=== PATIENT | female | born 1955 | race Caucasian/White ===

== ENCOUNTER 2025-02-23 15:49 | Emergency (ER) | payer MEDICARE, SELFPAY ==
[2025-02-23 16:01] VITALS: BP 159/80; PULSE 85; RESP 16; TEMP 36.1; O2SAT 99; BMI 29.6
--- NOTE | 2025-02-23 16:14 | ED.SKABFB ---
HPI - Skin/Abscess/Foreign Bdy General Date Seen: 02/23/25 Chief complaint: Skin/Abscess/Foreign Body Stated complaint: R arm injury Time Seen by Provider: 02/23/25 16:14 Source: patient and RN notes reviewed Mode of arrival: ambulatory Limitations: no limitations History of Present Illness HPI narrative: This 69-year-old female is here with her significant other, she is being evaluated of concern of bruising in her right arm. She attempted to donate blood on Monday as her blanket binder has cancer and does get blood transfusions frequently. She was trying to donate blood back. She states the person attempting to cannulate her vein had a very difficult time getting IV access, she states she had difficult time with drawing it. She admits that she is worried as she had a friend whose daughter had a blood draw an her leg years ago and then some condition went undiagnosed and she lost her leg. Reviewed with patient that there is really no way to know what happened there. We do not know what ultimately was underlying wrong with this patient, there could have been infection. There can be increased risk of thromboembolic disease when accessing lower extremity veins verses upper extremity veins. She is having no fevers or chills herself, no swelling in the arm, no numbness or tingling. She does note that the bruising has come out a bit more which is concerning to her. There is no difficulty moving her arm. No associated shortness of breath or chest pain. She has some localized pain right at the point where they attempted to put the IV in. No history of blood clots, no blood thinners. Review of Systems Narrative: As per HPI. PFSH PFSH Social History Smoking Status: Never smoker Do you use any of these nicotine containing products: None Second hand tobacco smoke exposure: No How often do you have a drink containing alcohol: never How often do you have six or more drinks on one occasion: Never AUDIT-C Alcohol total score: 0 Non-prescribed substance use: denies use service: No Exam Const: Vital Signs, click to edit/add: Vital Signs - 24 hr 02/23/25 16:01 Temperature 97.0 F L Pulse Rate [Pulse Oximeter] 85 Respiratory Rate 16 Blood Pressure [Le ft Upper Arm] 159/80 H Pulse Oximetry 99 Oxygen Delivery Me thod Room Air This 69-year-old female is alert, interactive, no apparent distress. She is ambulatory into the ED of her own accord. Lungs clear, good air entry, wheeze or crackles, no tachypnea, no accessory muscle use. CV regular rate and rhythm, no murmur, normal S1-S2, no S3-S4. She has full range of motion throughout her right arm, no deficits noted. There is absolutely no swelling. She has a good radial pulse, normal sensation distally. She has up pinpoint scab we can see where they tried to put the IV in for her blood donation in the right antecubital fossa. There is no palpable cord from this site, upper arm is not tender, forearm has no swelling or tenderness. She has some bruising around that puncture site and then some medially in the antecubital fossa that is deep purplish and blue. She has some mild tenderness in the bruised area but overall tolerates palpation quite well. Documenting provider has reviewed patient's vital signs: yes Course Course ED Course: Have reviewed with patient that this appears to be normal traumatic bruising from a difficult IV access. Unfortunately it did not work and there was some trauma to the area but I am not seeing anything concerning. I would not ultrasound her she really has no physical exam or physical symptoms concerning right now. We discussed that this is just classic traumatic bruising in should start to resolve over the next 1-2 weeks. Did discuss signs and symptoms of a DVT. She really has no swelling in this arm right now, just minimal site tenderness where the attempted the IV and no cord, no significant induration. We discussed observation and conservative management, she is comfortable with this. Will not be doing any labs as this is very unlikely to change my course of action here. Vital Signs Vital signs: Initial Vital Signs Temperature 97.0 F L 02/23/25 16:01 Temperature Source Temporal Artery Scan 02/23/25 16:01 Pulse Rate 85 02/23/25 16:01 Pulse Rhythm Regular 02/23/25 16:01 Respiratory Rate 16 02/23/25 16:01 Blood Pressure 159/80 H 02/23/25 16:01 Blood Pressure Mean 106 H 02/23/25 16:01 Blood Pressure Position Sitting 02/23/25 16:01 Pulse Oximetry 99 02/23/25 16:01 Oxygen Delivery Method Room Air 02/23/25 16:01 Vital Signs Temperature 97.0 F L 02/23/25 16:01 Pulse Rate 85 02/23/25 16:01 Respiratory Rate 16 02/23/25 16:01 Blood Pressure 159/80 H 02/23/25 16:01 Pulse Oximetry 99 02/23/25 16:01 Oxygen Delivery Method Room Air 02/23/25 16:01 Temperature 97.0 F L 02/23/25 16:01 Pulse Rate 85 02/23/25 16:01 Respiratory Rate 16 02/23/25 16:01 Blood Pressure 159/80 H 02/23/25 16:01 Pulse Oximetry 99 02/23/25 16:01 Oxygen Delivery Method Room Air 02/23/25 16:01 Discharge Plan Discharge Clinical Impression: Traumatic ecchymosis of right forearm Qualifiers: Encounter type: initial encounter Qualified Code(s): S50.11XA - Contusion of right forearm, initial encounter Patient Disposition: Home, Self-Care Condition: Stable Instructions: Contusion in Adults (ED) Additional Instructions: This is most definitely a traumatic bruise from the attempt at achieving IV access for the blood donation. You may see the bruising travel down the arm as gravity poles the bruise dependent. You can try a resting your arm, using some ice to the bruised area. This should improve over the next 1-2 weeks. If you notice that the whole forearm itself is starting to become swollen or tender within the forearm outside of the initial bruise and attempted IV site, do recommend having somebody look at your arm again. I see no evidence of anything concerning at this time outside of a bruised area in the arm. Any time there are attempts for injections or IV sites, infection can result; infection would likely start as increased swelling in the area, increased pain and redness, possible fever. If you have signs and symptoms of an infection developing, do recommend re-evaluation. Activity Level: Activity as Tolerated Stand Alone Forms: [employer]ealth Info Instructions
--- OUTSIDE RECORDS SUMMARY | 2025-02-23 16:53 | XMS_ITS | Clinical Summary ---
Author Organization [facility] Address [address] [place] [id number] Care Team Providers Care Oracle Database Developer Name Role Phone Nissa Joel Primary Care Provider Allergies No known active allergies Medications aspirin enteric coated 81 mg tablet Take 1 tablet by mouth once daily with a meal. 0 0 Active ACCU-CHEK FASTCLIX LANCET DRUMIndications: Controlled type 2 diabetes mellitus without complication, without long-term current use of insulin (HC) Dispense item covered by pt ins. E11.9 NIDDM type II - Test 1 times/day 100 Each 6 0 Active Blood Pressure Monitor (BLOOD PRESSURE KIT)Indications: Essential hypertension Diagnosis: hypertension Use as directed OMRON 1 Device 1 Active Accu-Chek Guide test strips stripIndications :Controlled type 2 diabetes mellitus without complication, without long-term current use of insulin (HC) USE DIRECTED 3 TIMES A DAY 300 Strip 3 1 Active lisinopriL 20 mg tabletIndication s:Essential hypertension Take 1 Tablet (20 mg) by mouth once daily. 100 Tablet 3 5 Active hydroCHLOROthiaz mikey 50 mg tabletIndication s:Essential hypertension Take 1 Tablet (50 mg) by mouth once daily. 100 Tablet 3 5 Active metFORMIN 500 mg Extended-Release tabletIndication s:Controlled type 2 diabetes mellitus without complication, without long-term current use of insulin (HC) Take 1 tablet by mouth daily with a meal for a week, then take 1 tablet twice daily with meals. 200 Tablet 3 5 Active atorvastatin 40 mg tabletIndication s:Mixed dyslipidemia Take 1 Tablet (40 mg) by mouth at bedtime. 100 Tablet 3 5 Active Active Problems Problem Noted Date Diagnosed Date Type 2 diabetes mellitus wit h diabetic cataract, without long-term current use of insulin 12/15/2024 Osteopenia of multiple sites 03/10/2022 Overview (03/10/2022): DEXA 03/10/22: T-scores AP: 0.5, LFN -1.9, RFN -1.9. FRAX 10.6, 2.5%. Recommend basic bone health and repeat in 3-5 years. 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 Recommended to repeat low dose CT in 1 month. 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 Prediabetic class recommended Tobacco use disorder 11/02/2006 Insomnia, unspecified 11/02/2006 Essential hypertension 10/08/2002 Resolved Problems Problem Noted Date Diagnosed Date Resolved Date Type 2 diabetes mellitus wit h diabetic cataract, without long-term current use of insulin 02/19/2024 05/23/2024 History of abnormal cervical Pap smear 11/27/2017 06/03/2024 Overview (01/15/2021): History of cryotherapy of cervix. Date and results unknown. ASCCP recommends: History of CIN2 - CIN3: Cotesting every 3 years for 20 years. Due 12/2023 Hyperlipidemia, unspecified 11/02/2006 12/30/2020 Encounters Date Type Department Care Team Description 02/23/2025 3:10 PM CDT Office Visit [facility] [address] [place] [phone] Error-please disregard (appt cancellation) 02/23/2025 Travel 12/16/2024 3:00 PM CDT [place] [facility] [address] [place] [address] Nissa Joel DO Medicare ANNUAL (subsequent) Visit 12/16/2024 Travel 12/11/2024 Travel from Last 3 Months Immunizations Immunization Administration Dates Next Due COVID-19 VACCINE SPIKEVAX (M ODERNA 50MCG/0.5ML) 12YO+ PFS 05/23/2024,02/19/2024 COVID-19 vaccine (Moderna 100mcg/0.5mL) PF, MDV 12/16/2020,11/13/2020 COVID-19 vaccine (Moderna 50mcg/0.5mL) 12YO+ BIVALENT PF, MDV 06/14/2022 COVID-19 vaccine (Moderna Carlos harjit 50mcg/0.25mL) PF, MDV 12/30/2021 HepA-HepB (Twinrix) 06/25/2015,04/29/2015 Influenza Virus, Unspecified 06/16/2020,07/07/20 17 Influenza, High-dose Quadriv alent Inactivated 06/11/2022,06/19/2021 Influenza, IIV3 (Age >=3 years) 05/23/20 11,06/21/2010,05/29/2009,2005 Influenza, IIV4 06/16/2019, 8,05/18/2016,2014 Influenza, Inactivated AIIV4 (Age 65+ Years) Preserv Free 05/21/2023 Influenza, Inactivated IIV3 (Age 65+ Years) Preserv Free 05/23/2024 Influenza,CCIIV4 PRESERV FREE 06/16/2020, 017 Pneumococcal Conj 20-valent (Prevnar 20) 07/01/2022 Pneumococcal Poly,23-Valent (Pneumovax) 02/07/2019 Td, Preservative Free (age > = 7 Years) 07/12/2017 Tdap 11/02/2006 Zoster (Shingrix-RZV, recombinant) 02/07/2019, Family History Medical History Relation Name Comments Multiple myeloma Brother Hypertension Father Stroke Father Cancer Maternal Grandfather Cancer Maternal Grandmother Cervica l Diabetes Mother Heart Disease Mother CAD Hyperlipidemia Mother Hypercholeste rolemea Hypertension Mother Stroke Paternal Grandmother Cancer-breast No Family History Relation Name Status Comments Brother Father Maternal Grandfather Maternal Grandmother Mother Paternal Grandfather Paternal Grandmother Social History Tobacco Use Types Packs/Day Years Used Date Smoking Tobacco: Every Day Cigarettes 0.5 43 Smokeless Tobacco: Never Tobacco Cessation:Ready to Q uit: No; Counseling Given: No Comments:packet given working on cutting back Alcohol Use Standard Drinks/Week Comments Yes 5 (1 standard drink = 0.6 oz pur e alcohol) PHQ-2 Answer Date Recorded PHQ-2 TOTAL SCORE 0 12/16/2024 Social Connections Answer Date Recorded Do you often feel lonely or isolated from those around you? 0 12/16/2024 Financial Resource Strain Answer Date R ecorded Difficulty of Paying Living Expenses 3 12/16/2024 Difficulty of Paying Living Expenses Not on file 12/16/2024 Food Insecurity Answer Date Recorded Do you worry your food will run out before you are able to buy more? 1 12/16/2024 Transportation Needs Answer Date Record ed Does lack of transportation keep you from medica l appointments? 1 12/16/2024 Does lack of transportation keep you from work, meetings or getting things that you need? 1 12/16/2024 Housing Stability Answer Date Recorded What is your housing situation today? 1 12/16/2024 Utilities Answer Date Recorded Do you have trouble paying f or utilities (for example, heat, electricity, water, phone)? 1 12/16/2024 Comments No Sex and Gender Information Value Date Recorded Sex Assigned at Not on file Legal Sex Female 5:20 AM CARE TRANSITIONS MANAGER Gender Identity Not on file Sexual Orientation Not on file Obstetrics History Para Term AB IAB SAB Ectopic Multiple Livin g Live Births 2 1 1 0 1 1 0 0 0 1 Date Outcome GA Total Labor Labor/2nd/3rd Weight Sex Type Anes PTL Stacia A1 A5 Name Clin IAB Term Last Filed Vital Signs Vital Sign Reading Time Taken Comments Blood Pressure 134/72 12/16/2024 3:03 PM CDT Pulse 68 12/16/2024 3:03 PM CDT Temperature 36.8 C (98.3 F) 12/08/2023 1:56 PM CDT Respiratory Rate 16 12/16/2024 3:03 PM CDT Oxygen Saturation 99% 12/16/2024 3:03 PM CDT Inhaled Oxygen Concentration - - Weight 76.4 kg (168 lb 8 oz) 12/16/2024 3:03 PM CDT Height 160.6 cm (5' 3.23) 12/16/2024 3:03 PM CD T Body Mass Index 29.63 12/16/2024 3:03 PM CDT Plan of Treatment Upcoming Encounters Date Type Department Care Team (Late st Contact Info) Description 06/19/2025 3:50 PM CDT Office [place] [facility] [place] [address] [place] [address] [place], [place] [phone] Health Maintenance Due Date Last Done Comments RSV vaccine for adults or (1 - Risk 60-74 years 1-dose series) 2015 Hepatitis B series for 19+ ( 3 of 3 - Hep B Twinrix 3-dose series) 11/24/2015 06/25/2015, 04/29/2015 COVID-19 vaccine series ( season) 2024 05/23/2024, 02/19/2024, 06/23/2023, Additional history exists Mammogram for age 45-75 07/30/2025 07/30/20 24, 03/20/2023, 03/07/2022, Additional history exists Low Dose CT (for lung CA) ag e 50-80 08/20/2025 08/20/2024, 2023, 04/26/2022, Additional history exists BMI (ht and wt on same day) for age 18+ 12/16/2025 12/16/2024, 05/23/2024, 02/19/2024, Additional history exists Depression screening for age 12+ 12/16/2025 12/16/2024, 02/28/2024, 02/20/2024, Additional history exists Medicare Wellness for age 65+ 12/17/2025, 02/19/2024, 12/30/2022, Additional history exists Tetanus booster 07/12/2027 07/12/2017, 11/02/2006 Colonoscopy through age 75 03/20/202803/20, 03/20/2018, 01/01/2008 Lipids for age 45-75 12/16/2029 12/16/2024, 02/19/2024, 12/30/2022, Additional history exists Tdap Completed 11/02/2006 Hepatitis C screening for ag e 18-79 Completed 04/09/2014 Zoster (shingles) series for age 50+ Completed 02/07/2019, 10/10/2018 DEXA/DXA scan for age 65+ Completed 03/07/2022, Pneumococcal series for age 50+ Completed , 02/07/2019 Influenza Vaccine Completed 05/23/2024, , 06/16/2020, Additional history exists Goals Goal Patient Goal Type Associated Problems Recent Progress Patient-Stated? Author BLOOD PRESSURE-MA INTAINS BP LESS THAN 130/80 Blood Pressure No Ambreen Huerta, MD Procedures Procedure Name Priority Date/Time Associated Diagnosis Comments URINE ALBUMIN TO CREATININE RATIO, RANDOM Routine 12/16/2024 4:13 PM CDT Controlled type 2 diabetes mellitus without complication, without long-term current use of insulin (HC) HEMOGLOBIN A1C MONITORING (POCT) Routine 12/16/2024 2:54 PM CDT Controlled type 2 diabetes mellitus without complication, without long-term current use of insulin (HC) COMP METABOLIC PANEL Routine 12/16/2024 2:53 PM CDT Essential hypertension LIPID PANEL W REFLEX MEASURED LDL Routine 12/16/2024 2:53 PM CDT Mixed dyslipidemia CT CHEST SCREENING LOW DOSE WO CONTRAST Routine 08/20/2024 2:42 PM CARE TRANSITIONS MANAGER Encounter for screening for lung cancer Smoker XR MAMMO VICKIE BILAT SCREEN Routine 07/30/2024 4:01 PM CARE TRANSITIONS MANAGER Visit for screening mammogram XR DXA BONE DENSITY 2 SITES AXIAL Routine 03/07/2022 3:30 PM CDT Osteoporosis screening Unspecified menopausal and perimenopausal disorder COLONOSCOPY 03/20/2018 11:33 AM CDT ANTI HCV Routine 04/09/2014 8:50 AM CDT Need for hepatitis C screening test from Last 3 Months or Most Recently Relevant to Health Maintenance Results * URINE ALBUMIN TO CREATININE RATIO, RANDOM (12/16/2024 4:13 PM CDT) ALB RAND URINE <12.0 mg/L 12/16/2024 11:52 PM CDT [facility] CREATININE,URINE 0.39 g/L 12/17/19 11:52 PM CDT [facility] ALBUMIN TO CREATININE RATIO,RAND UR 12/16/2024 11:52 PM CDT [facility] Comment:Urine Albumin below measurement range, unable to calculate. Urine URINE SPECIMEN / Unknown Non-Blood / Unknown 12/16/2024 4:13 PM CDT 12/16/2024 4:13 PM CDT Narrative [facility] - 12/16/2024 11:52 PM CDT If Albumin to Creatinine Ratio is elevated, consider the following: Elevations seen with incipient nephropathy associated with diabetes mellitus or hypertension. Stress, exercise,hematuria, and urinary tract infection may also produce elevated results. If clinically indicated, confirm with 24 Hour Albumin to Creatinine Ratio. Nissa Joel DO URINE Final Resul t [facility] [address] [place] [address], * HEMOGLOBIN A1C MONITORING (POCT) (12/16/2024 2:54 PM CDT) Pathologist [facility] POC HEMOGLOBIN A1C 5.7 <6.0 % OF TOTAL HGB [facility] Comment: Any point of care results exhibiting inconsistency with the patient's clinical status should be repeated using a different testing method. Blood BLOOD SPECIMEN / Unknown 12/16/2024 2:54 PM CDT 12/16/2024 2:54 PM CDT Nissa Joel DO CHEMISTRY Final Resul t [facility] [address] [place] [address], [facility] [address] [facility] [address] [place] [address] * LIPID PANEL W REFLEX MEASURED LDL (12/16/2024 2:53 PM CDT) CHOLESTEROL, TOTAL 162 <200 mg/dL [facility] HDL CHOLESTEROL 59 > OR = 50 mg/dL [facility] TRIGLYCERIDES 134 <150 mg/dL [facility] LDL-CHOLESTEROL 80 mg/dL (calc) [facility] Comment: Reference range: <100 Desirable range <100 mg/dL for primary prevention; <70 mg/dL for patients with CHD or diabetic patients with > or = 2 CHD risk factors. LDL-C is now calculated using the Jerald calculation, which is a validated novel method providing better accuracy than the Friedewald equation in the estimation of LDL-C. Thierno PARTIDA et al. MARY ANN. 2013;310(19): 4904-9284 (http://education.Five Apes/faq/FWM799) CHOL/HDLC RATIO 2.7 <5.0 (calc) [facility] NON HDL CHOLESTEROL 103 <130 mg/dL (calc) [facility] Comment: For patients with diabetes plus 1 major ASCVD risk factor, treating to a non-HDL-C goal of <100 mg/dL (LDL-C of <70 mg/dL) is considered a therapeutic option. Blood BLOOD SPECIMEN / Unknown 12/16/2024 2:53 PM CDT 12/16/2024 2:53 PM CDT us Nissa Joel DO CHEMISTRY Final Resul t [facility] [address] [place] [address], [address] [address] * COMP METABOLIC PANEL (12/16/2024 2:53 PM CDT) [facility] GLUCOSE 89 65 - 99 mg/dL [facility] Comment: Fasting reference interval UREA NITROGEN (BUN) 14 7 - 25 mg/dL [facility] CREATININE 0.83 0.50 - 1.05 mg/dL [facility] EGFR 76 > OR = 60 mL/min/1. 73m2 [facility] BUN/CREATININE RATIO SEE NOTE: 6 - (calc) [facility] Comment: Not Reported: BUN and Creatinine are within reference range. SODIUM 139 135 - 146 mmol/L [facility] POTASSIUM 4.4 3.5 - 5.3 mmol/L [facility] CHLORIDE 102 98 - 110 mmol/L [facility] CARBON DIOXIDE 28 20 - 32 mmol/L [facility] CALCIUM 9.8 8.6 - 10.4 mg/dL [facility] PROTEIN, TOTAL 6.8 6.1 - 8.1 g/dL [facility] ALBUMIN 4.6 3.6 - 5.1 g/dL [facility] GLOBULIN 2.2 1.9 - 3.7 g/dL (calc) [facility] ALBUMIN/GLOBULIN RATIO 2.1 1.0 - 2.5 (calc) [facility] BILIRUBIN, TOTAL 0.6 0.2 - 1.2 mg/dL [facility] ALKALINE PHOSPHATASE 57 37 - 153 U/L [facility] AST 16 10 - 35 U/L [facility] ALT 19 6 - 29 U/L [facility] Blood BLOOD SPECIMEN / Unknown 12/16/2024 2:53 PM CDT 12/16/2024 2:53 PM CDT us Nissa Joel DO CHEMISTRY Final Resul t [facility] [address] [place] [address], [facility] [address] [place] [address] * CT CHEST SCREENING LOW DOSE WO CONTRAST (08/20/2024 2:42 PM CARE TRANSITIONS MANAGER) Anatomical Region Laterality Modality Computed Tomogra phy 08/20/2024 2:42 PM CARE TRANSITIONS MANAGER Impressions 2024 10:03 AM CARE TRANSITIONS MANAGER 1. Negative for lung cancer screening purposes. LungRADS CATEGORY: 1 - Negative RADIOLOGIST RECOMMENDATION: Continue annual screening with low-dose CT chest in 12 months. Narrative 2024 10:03 AM CARE TRANSITIONS MANAGER For Patients: As a result of the Cures Act, medical imaging exams and procedure reports are released immediately into your electronic medical record. You may view this report before your referring provider. If you have questions, please contact your health care provider. EXAM: LOW DOSE LUNG CANCER SCREENING CT CHEST LOCATION: [facility] DATE: 08/20/2024 INDICATION: Lung cancer screening. History of smoking. High risk patient. COMPARISON: [address] TECHNIQUE: Low-dose lung cancer screening non-contrast CT chest. Dose reduction techniques were used. FINDINGS: NODULES: No significant lung nodule. LUNGS AND PLEURA: Stable Faint 3 mm pleural nodule left major fissure image 53 of no significance. No new findings. MEDIASTINUM: Normal. CORONARY ARTERY CALCIFICATION: Moderate. LIMITED UPPER ABDOMEN: Normal. MUSCULOSKELETAL: Normal. Procedure Note Danish Rosales MD - 2024 For Patients: As a result of the s Act, medical imagingexams and procedure reports are released immediately into your electronicmedical record. You may view this report before your referring provider.If you have questions, please contact your health care provider. EXAM: LOW DOSE LUNG CANCER SCREENING CT CHEST LOCATION: [facility] DATE: 08/20/2024 INDICATION: Lung cancer screening. History of smoking. High riskpatient. COMPARISON: [address] TECHNIQUE: Low-dose lung cancer screening non-contrast CT chest. Dosereduction techniques were used. FINDINGS: NODULES: No significant lung nodule. LUNGS AND PLEURA: Stable Faint 3 mm pleural nodule left major fissureimage 53 of no significance. No new findings. MEDIASTINUM: Normal. CORONARY ARTERY CALCIFICATION: Moderate. LIMITED UPPER ABDOMEN: Normal. MUSCULOSKELETAL: Normal. IMPRESSION: 1. Negative for lung cancer screening purposes. LungRADS CATEGORY: 1 - Negative RADIOLOGIST RECOMMENDATION: Continue annual screening with low-dose CTchest in [address] Final Resul t * XR MAMMO VICKIE BILAT SCREEN (07/30/2024 4:01 PM CARE TRANSITIONS MANAGER) Anatomical Region Laterality Modality BREASTS, Breast Left, Breast Right Bilateral Mammography Impressions 07/31/2024 11:25 AM CARE TRANSITIONS MANAGER There is no radiographic evidence for malignancy. Recommend annual mammograms. MAMMOGRAM ASSESSMENT: ACR 1 Negative PATIENTS: You will also receive a letter with your examination results in an easy to read format. If you have questions about your results, please contact your referring provider. Narrative 07/31/2024 11:25 AM CARE TRANSITIONS MANAGER For Patients: As a result of the Cures Act, medical imaging exams and procedure reports are released immediately into your electronic medical record. You may view this report before your referring provider. If you have questions, please contact your health care provider. XR MAMMO VICKIE BILAT SCREEN [[id number]] CLINICAL HISTORY: This is an asymptomatic 68 y.o. patient. INDICATION FOR EXAM: Mammogram Screening. TECHNIQUE: CC & MLO views were obtained. This study was evaluated with the assistance of Computer-Aided Detection. Breast Tomosynthesis was used in interpretation. COMPARISON FILM: Yes 03/20/23 [employer]surfing 03/07/22 [employer] FINDINGS: There are scattered areas of fibroglandular density. There are no dominant masses, suspicious micro calcifications or areas of architectural distortion. us Nissa Joel DO MAMMO Final Resul t * XR DXA BONE DENSITY 2 SITES AXIAL (03/07/2022 3:30 PM CDT) Anatomical Region Laterality Modality Spine, HIPS, HIPL, HIPR Computed Radiography 03/07/2022 3:30 PM CDT Impressions 03/08/2022 12:57 PM CDT Low bone density (OSTEOPENIA). T score meets the World Health Organization (WHO) criteria for low bone density (osteopenia) at one or more measured sites. The risk of osteoporotic fracture increased approximately two-fold for each SD decrease in T-score. Narrative 03/08/2022 12:57 PM CDT For Patients: As a result of the Cures Act, medical imaging exams and procedure reports are released immediately into your electronic medical record. You may view this report before your referring provider. If you have questions, please contact your health care provider. EXAM: XR DXA BONE DENSITY 2 SITES AXIAL LOCATION: [facility] DATE/TIME: 03/07/2022 3:30 PM INDICATION: I. other (screening-at minimum one option in 2-5 must be selected) - z13.820 Osteoporosis Screening Unspecified Menopausal And Perimenopausal Disorder COMPARISON: None. TECHNIQUE: Dual-energy x-ray absorptiometry performed with routine technique. FINDINGS: Lumbar Spine: L1-L4: BMD: 1.242 g/cm2. T-score: 0.5. Z-score: 1.6 RIGHT Hip Total: BMD: 0.850 g/cm2. T-score: -1.3. Z-score: -0.4 RIGHT Hip Femoral neck: BMD: 0.779 g/cm2. T-score: -1.9. Z-score: -0.7 LEFT Hip Total: BMD: 0.862 g/cm2. T-score: -1.2. Z-score: -0.3 LEFT Hip Femoral neck: BMD: 0.779 g/cm2. T-score: -1.9. Z-score: -0.7 WHO Criteria: Normal: T score at or above -1 SD Osteopenia: T score between -1 and -2.5 SD Osteoporosis: T score at or below -2.5 SD COMPARISON: None. FRAX Results: 10 year probability of major osteoporotic fracture is 10.6%, and of hip fracture is 2.5%, based on right femoral neck BMD. RECOMMENDATIONS: Consider treatment if major osteoporotic fracture score is greater than or equal to 20%. Consider treatment if hip fracture score is greater than or equal to 3%. Procedure Note Nathan Bravo MD - 03/08/2022 For Patients: As a result of the Century Cures Act, medical imagingexams and procedure reports are released immediately into your electronicmedical record. You may view this report before your referring provider.If you have questions, please contact your health care provider. EXAM: XR DXA BONE DENSITY 2 SITES AXIAL LOCATION: [facility] DATE/TIME: 03/07/2022 3:30 PM INDICATION: I. other (screening-at minimum one option in 2-5 must beselected) - z13.820 Osteoporosis Screening Unspecified Menopausal AndPerimenopausal Disorder COMPARISON: None. TECHNIQUE: Dual-energy x-ray absorptiometry performed with routinetechnique. FINDINGS: Lumbar Spine: L1-L4: BMD: 1.242 g/cm2. T-score: 0.5. Z-score: 1.6 RIGHT Hip Total: BMD: 0.850 g/cm2. T-score: -1.3. Z-score: -0.4 RIGHT Hip Femoral neck: BMD: 0.779 g/cm2. T-score: -1.9. Z-score: -0.7 LEFT Hip Total: BMD: 0.862 g/cm2. T-score: -1.2. Z-score: -0.3 LEFT Hip Femoral neck: BMD: 0.779 g/cm2. T-score: -1.9. Z-score: -0.7 WHO Criteria: Normal: T score at or above -1 SD Osteopenia: T score between -1 and -2.5 SD Osteoporosis: T score at or below -2.5 SD COMPARISON: None. FRAX Results: 10 year probability of major osteoporotic fracture is 10.6%,and of hip fracture is 2.5%, based on right femoral neck BMD. RECOMMENDATIONS: Consider treatment if major osteoporotic fracture score is greater than orequal to 20%. Consider treatment if hip fracture score is greater than orequal to 3%. IMPRESSION: Low bone density (OSTEOPENIA). T score meets the World Health Organization(WHO) criteria for low bone density (osteopenia) at one or more measuredsites. The risk of osteoporotic fracture increased approximately two-foldfor each SD decrease in T-score. us Nissa Joel DO DEXA Final Resul t * COLONOSCOPY (03/20/2018 11:33 AM CDT) 03/20/2018 11:3 3 AM CDT Narrative Transcriptions Thierno Sampson MD - 03/20/2018 12:29 PM CDT Patient Name: Karen Cesar Procedure Date: 03/20/2018 Gender: Female Date of : 1955 Admit Type: Outpatient Procedure: Colonoscopy Proceduralist: Thierno Sampson MD , Aurora Hernandez (Nurse) Indications/Pre-Op Diagnosis: Screening for colorectal malignant neoplasm, Last colonoscopy: December 2007 Medications: Fentanyl 100 micrograms IV, Midazolam 4 mgIV, The level of sedation administered wasmoderate Procedure Description: The patient had risks, benefits and alternatives explained to andgave informed consent. The patient had a stable cardiopulmonary status and judged an adequate candidate for conscious sedation. The [id number] was passed through the anus and advanced tothe cecum, identified by appendiceal orifice and ileocecal valve. The colonoscopy was performed without difficulty. The patient toleratedthe procedure well. The quality of the bowel preparation was good. The ileocecal valve, appendiceal orifice, and rectum were photographed. Complications: No immediate complications. Estimated Blood Loss & Specimen: Estimated blood loss: none. Specimen collected - None Findings: The perianal and digital rectal examinations were normal. Multiple small and large-mouthed diverticula were found in thesigmoid colon and descending colon. There was evidence of diverticularspasm. The exam was otherwise without abnormality on direct and retroflexion views. Impressions/Post-Op Diagnosis: - Moderate diverticulosis in the sigmoid colon and in the descending colon. There was evidence of diverticular spasm. - The examination was otherwise normal on direct and retroflexionviews. - No specimens collected. Recommendation: - Patient has a contact number available for emergencies. The signsand symptoms of potential delayed complications were discussed with the patient. Return to normal activities tomorrow. Written discharge instructions were provided to the patient. - Resume previous diet. - Continue present medications. - Repeat colonoscopy in 10 years for screening purposes. Moderate Sedation: Moderate (conscious) sedation was administered by the endoscopy nurse and supervised by the endoscopist. The following parameters were monitored: oxygen saturation, heart rate, respiratory rate, blood pressure, adequacy of pulmonary ventilation and reponse to care. Please refer to the patien'ts medical record flowsheets and nursing notes for moderate sedation details. Total physician intraservice time was 20 minutes. Thierno Sampson MD 03/20/2018 12:29:34 PM This report has been signed electronically. Note Initiated On: 03/20/2018 11:33 AM Procedure Code(s): --- Professional --- 10806, Colonoscopy, flexible; diagnostic, including collection of specimen(s) bybrushing or washing, when performed (separateprocedure) Diagnosis Code(s): --- Professional --- Z12.11, Encounter for screening formalignant neoplasm of colon K57.30, Diverticulosis of large intestine without perforation or abscess withoutbleeding CPT copyright 2017 [employer]. All rights reserved. The codes documented in this report are preliminary and upon jewelry consultant reviewmay be revised to meet current compliance requirements. Scope In: 12:06:45 PM Scope Withdrawal Time 0 hours 8 minutes 5 seconds Scope Out: 12:24:20 PM us Thierno Sampson MD PROCEDURE ORD Final Res ult * ANTI HCV [30340.2] (04/09/2014 8:50 AM CDT) HEPATITIS C ANTIBODY Non-Reacti ve Non-Reacti ve 04/09/2014 4:12 PM CDT [facility] Blood specimen (specimen) BLOOD SPECIMEN / Unknown Venipuncture / Unknown 04/09/2014 8:50 AM CDT 04/09/2014 8:51 AM CDT Narrative [facility] - 04/09/2014 4:12 PM CDT Antibodies to HCV not detected; does not exclude the possibility of exposure to HCV. us Ambreen Huerta MD SEND OUTS Lianna l Result [facility] [address] [place] [address], from Last 3 Months or Most Recently Relevant to Health Maintenance Insurance [facility] MEDICARE ADVANTAGE MR MEDICARE PART A HB ONLY Care Teams Oracle Database Developer Relationship Specialty [place] [id number] [address] [place] [address] PCP - General Family Practice 11/02/17
== END 2025-02-23 17:07 | disposition home or self-care (01) ==
LOC: ED 16:52
PROVIDERS: Emergency Provider Family Medicine
DX: S40.021A Contusion of right upper arm, initial encounter (principal)
CPT/HCPCS: 99282; 99283